=== PATIENT | male | born 1990 | race Caucasian/White ===

== ENCOUNTER 2016-10-27 13:17 | Emergency (ER) | payer SELFPAY | END 2016-10-27 13:52 | disposition home or self-care (01) | LOC: FER 13:17 | DX: S46.992A Other injury of unspecified muscle, fascia and tendon at shoulder and upper arm level, left arm, initial encounter (principal); F17.210 Nicotine dependence, cigarettes, uncomplicated | CPT/HCPCS: 99283 ==

== ENCOUNTER 2020-12-11 22:19 | Emergency (ER) | payer SELFPAY ==
[2020-12-11 23:12] LABS: BASOPHIL 0.6 % (0-2); EOSINOPHIL 2.4 % (0-5); HCT 42.6 % (42.0-52.0); HGB 14.4 g/dl (13.2-18.0); LYMPHOCYTE 24.7 % (15-48); MCH 29.5 pg (25.0-31.0); MCHC 33.8 g/dL (32.0-36.0); MCV 87.3 fL (78.0-100.0); MONOCYTE 8.1 % (0-12); MPV 8.9 fL (6.0-9.5); NEUTROPHIL 63.9 % (41-80); NRBC 0; PLT 377 K/uL (150-400); RBC 4.88 M/uL (4.70-6.00); RDW 12.9 % (11.5-14.0); WBC 15.6 K/uL (4.0-10.5)
[2020-12-11 23:34] LABS: ALBUMIN 3.7 g/dL (3.4-5.0); BILIRUBIN - TOTAL 0.6 mg/dL (0.2-1.0); CREATININE 1.08 mg/dL (0.67-1.17); GLOBULIN (CALCULATION) 2.9 g/dL; POTASSIUM 3.7 mmol/L (3.5-5.1); TOTAL PROTEIN 6.6 g/dL (6.4-8.2)
[2020-12-12] MEDS ORDERED: DICLOFENAC SODI75 MG PO (00:33)
[2020-12-12] MEDS ORDERED: NORCO 5-325 TA1 EACH PO (07:23)
[2020-12-12] MEDS ORDERED: PROTONIX 40MG T40 MG PO (07:23)
[2020-12-12] MEDS ORDERED: CARAFATE S500 MG/TSP PO (07:23)
[2020-12-12] MEDS ORDERED: BENTYL10 MG PO (07:23)
== END 2020-12-12 00:55 | disposition home or self-care (01) ==
LOC: FER 22:19
PROVIDERS: Emergency Medicine
DX: R09.1 Pleurisy (principal); R06.02 Shortness of breath; F17.200 Nicotine dependence, unspecified, uncomplicated; Z20.822 Contact with and (suspected) exposure to COVID-19
CPT/HCPCS: 36415; 71045; 80053; 83605; 84484; 85025; 87040; 93005; J1885; J2060; J2930; U0002

== ENCOUNTER 2020-12-12 06:25 | Emergency (ER) | payer OTHER ==
[~2020-12-12 06:25] MED LIST: DICLOFENAC SODI75 MG PO
[2020-12-12] MEDS ORDERED: PROTONIX 40MG T40 MG PO (07:23)
[2020-12-12] MEDS ORDERED: CARAFATE S500 MG/TSP PO (07:23)
[2020-12-12] MEDS ORDERED: NORCO 5-325 TA1 EACH PO (07:23)
[2020-12-12] MEDS ORDERED: BENTYL10 MG PO (07:23)
== END 2020-12-12 08:12 | disposition home or self-care (01) ==
LOC: FER 06:25
DX: K20.90 Esophagitis, unspecified without bleeding (principal); R07.89 Other chest pain; F17.200 Nicotine dependence, unspecified, uncomplicated
CPT/HCPCS: 36415; 71275; 84484; J1885; J2405

== ENCOUNTER 2021-05-14 19:30 | Emergency (ER) | payer OTHER ==
[~2021-05-14 19:30] MED LIST changes: +BENTYL10 MG PO; +CARAFATE S500 MG/TSP PO; +NORCO 5-325 TA1 EACH PO; +PROTONIX 40MG T40 MG PO
[2021-05-14 20:00] LABS: BASOPHIL 0.6 % (0-2); EOSINOPHIL 1.9 % (0-5); HCT 47.8 % (42.0-52.0); HGB 15.8 g/dl (13.2-18.0); MCH 28.7 pg (25.0-31.0); MCHC 33.1 g/dL (32.0-36.0); MCV 86.9 fL (78.0-100.0); MONOCYTE 9.1 % (0-12); MPV 9.7 fL (6.0-9.5); NEUTROPHIL 54.2 % (41-80); NRBC 0; PLT 425 K/uL (150-400); RDW 12.8 % (11.5-14.0)
[2021-05-14 20:03] LABS: WBC 14.8 K/uL (4.0-10.5)
[2021-05-14 20:17] LABS: ALBUMIN 4.3 g/dL (3.4-5.0); BILIRUBIN - TOTAL 0.7 mg/dL (0.2-1.0); CREATININE 1.22 mg/dL (0.67-1.17); GLOBULIN (CALCULATION) 3.3 g/dL; POTASSIUM 3.9 mmol/L (3.5-5.1); TOTAL PROTEIN 7.6 g/dL (6.4-8.2)
== END 2021-05-14 22:03 | disposition home or self-care (01) ==
LOC: FER 19:30
PROVIDERS: Internal Medicine
DX: T40.411A Poisoning by fentanyl or fentanyl analogs, accidental (unintentional), initial encounter (principal); N17.9 Acute kidney failure, unspecified; R00.0 Tachycardia, unspecified
CPT/HCPCS: 36415; 80053; 85025; J2060; J2310; J2795; J7120

== ENCOUNTER 2021-07-16 07:21 | Emergency (ER) | payer OTHER ==
[2021-07-16 08:14] LABS: BASOPHIL 0.6 % (0-2); EOSINOPHIL 4.2 % (0-5); HCT 41.1 % (42.0-52.0); HGB 13.5 g/dl (13.2-18.0); LYMPHOCYTE 20.5 % (15-48); MCH 29.3 pg (25.0-31.0); MCHC 32.8 g/dL (32.0-36.0); MCV 89.2 fL (78.0-100.0); MONOCYTE 6.8 % (0-12); MPV 9.3 fL (6.0-9.5); NEUTROPHIL 67.7 % (41-80); NRBC 0; PLT 424 K/uL (150-400); RBC 4.61 M/uL (4.70-6.00); RDW 13.5 % (11.5-14.0); WBC 9.5 K/uL (4.0-10.5)
[2021-07-16 08:30] LABS: BUN/CREAT RATIO (CALC) 12.3 RATIO; CREATININE 0.73 mg/dL (0.67-1.17); POTASSIUM 4.4 mmol/L (3.5-5.1)
[2021-07-16 08:56] LABS: CKMB <0.5 ng/mL (0.0-3.6)
[2021-07-16] MEDS ORDERED: PROTONIX 40MG T40 MG PO (09:31)
== END 2021-07-16 09:58 | disposition home or self-care (01) ==
LOC: FER 07:21
PROVIDERS: Emergency Medicine
DX: K20.90 Esophagitis, unspecified without bleeding (principal); F17.210 Nicotine dependence, cigarettes, uncomplicated
CPT/HCPCS: 36415; 71046; 71275; 80048; 82553; 83690; 84484; 85025; 85379; 93005; Q9967

== ENCOUNTER 2022-01-06 02:38 | Emergency (ER) | payer OTHER ==
[2022-01-06 03:14] LABS: BASOPHIL 0.4 % (0-2); EOSINOPHIL 0.1 % (0-5); HCT 47.9 % (42.0-52.0); HGB 16.7 g/dl (13.2-18.0); MCH 29.2 pg (25.0-31.0); MCHC 34.9 g/dL (32.0-36.0); MCV 83.7 fL (78.0-100.0); MONOCYTE 6.1 % (0-12); MPV 9.6 fL (6.0-9.5); NEUTROPHIL 79.1 % (41-80); NRBC 0; PLT 415 K/uL (150-400); RBC 5.72 M/uL (4.70-6.00); RDW 12.8 % (11.5-14.0); WBC 15.5 K/uL (4.0-10.5)
[2022-01-06 03:25] LABS: ALBUMIN 4.5 g/dL (3.4-5.0); BILIRUBIN - TOTAL 1.1 mg/dL (0.2-1.0); BUN/CREAT RATIO (CALC) 20.2 RATIO; CREATININE 1.14 mg/dL (0.67-1.17); GLOBULIN (CALCULATION) 3.5 g/dL; POTASSIUM 3.8 mmol/L (3.5-5.1)
[2022-01-06 04:13] LABS: CORONAVIRUS 2019 SARS-COV-2 NEGATIVE (NEGATIVE); INFLUENZA A NAA NEGATIVE (NEGATIVE)
[2022-01-06 04:36] LABS: BILIRUBIN NEGATIVE (NEGATIVE); BLOOD TRACE-INTACT Ery/uL (NEGATIVE); CLARITY CLEAR (CLEAR); COLOR YELLOW (YELLOW); GLUCOSE (U) NORMAL (NORMAL); LEUKOCYTES NEGATIVE Leu/uL (NEGATIVE); NITRITE NEGATIVE (NEGATIVE); PROTEIN TRACE (LOW) mg/dL (NEGATIVE); pH 7.5 (5.0-9.0)
[2022-01-06 04:43] LABS: BACTERIA TRACE
[2022-01-06 04:45] LABS: AMPHETAMINES NEGATIVE (NEGATIVE); BARBITURATES NEGATIVE (NEGATIVE); ECSTASY (MDMA) NEGATIVE (NEGATIVE); MARIJUANA (THC) POSITIVE (NEGATIVE); METHADONE POSITIVE (NEGATIVE); OPIATES POSITIVE (NEGATIVE)
[2022-01-06 04:46] LABS: OXYCODONE NEGATIVE (NEGATIVE)
[2022-01-06] MEDS ORDERED: OMEPRAZOLE40 MG PO (05:50)
[2022-01-06] MEDS ORDERED: PEPCID AC20 MG PO (05:50)
[2022-01-06] MEDS ORDERED: PHENERGAN25 M1 PO (05:50)
[2022-01-06] MEDS ORDERED: ONDANSETRON ODT4 MG PO (05:50)
[2022-01-06] MEDS ORDERED: CARAFATE1 GM PO (05:50)
[2022-01-06] MEDS ORDERED: PERCOCET 5-3251 EACH PO (05:50)
== END 2022-01-06 06:10 | disposition home or self-care (01) ==
LOC: FER 02:38
PROVIDERS: Internal Medicine
DX: R07.89 Other chest pain (principal); K21.00 Gastro-esophageal reflux disease with esophagitis, without bleeding; F17.210 Nicotine dependence, cigarettes, uncomplicated; Z20.822 Contact with and (suspected) exposure to COVID-19
CPT/HCPCS: 36415; 71260; 80053; 80305; 81001; 83690; 84145; 85025; C9113; J1170; J2405; J2550; J3010; J7120; Q9967; U0002